=== PATIENT | female | born 1960 | race Two or more races ===

== ENCOUNTER 2017-12-05 01:56 | Emergency (ER) | payer MEDICAID ==
[~2017-12-05] VITALS: Ht 165.1 cm; Wt 81.6 kg
[~2017-12-05 01:56] MED LIST: ASPI-807 PO; CLOP75TA15 PO
--- NOTE | 2017-12-05 01:56 | NUR ---
BLOOD IN URINE SINCE SUNDAY WITH RT FLANK PAIN; WENT TO [facility] SUNDAY. HAS BEEN TAKING PCN FOR UTI BUT NEW ONSET PAIN STARTING TODAY. VSS NAD A/OX4 ABLE TO MAKE NEEDS KNOWN. WILL CONTINUE TO MONITOR FOR THE REMAINDER OF THE SHIFT.
--- NOTE | 2017-12-05 01:58 | NUR ---
URINE SAMPLE COLLECTED
--- NOTE | 2017-12-05 02:27 | NUR ---
ER MD LAI AT BEDSIDE
[2017-12-05] MEDS ORDERED: IBUPROFEN 400 MG TABLET PO ONE (02:30)
[2017-12-05] MEDS ORDERED: IBUPROFEN 400 MG TABLET ONE (02:32)
[2017-12-05 02:58] LABS: APPEARANCE,URINE CLOUDY (CLEAR); BILIRUBIN,URINE NEGATIVE (NEGATIVE); BLOOD, URINE 3+ Ery/uL (NEGATIVE); COLOR,URINE DARK YELLOW (YELLOW); KETONES,URINE NEGATIVE (NEGATIVE); LEUKOCYTE ESTERASE ,URINE TRACE (NEGATIVE); NITRITE, URINE NEGATIVE (NEGATIVE); PH,URINE 5.5 (5.0-8.0); PROTEIN,URINE TRACE mg/dl (NEGATIVE); UGLUCOSE NEGATIVE (NEGATIVE); UROBILINOGEN,URINE 0.2 EU/dL (0.2)
[2017-12-05 03:00] LABS: BACTERIA,URINE Moderate /HPF (None Seen); RBC,URINE TOO NUMEROUS TO COUN /HPF (0-2); SQUAMOUS EPITHELIAL CELL,UR Few /HPF (None Seen)
[2017-12-05] MEDS ORDERED: TAMSULOSIN 0.4 MG CAP.SR.24H ONE (03:23)
[2017-12-05] MEDS ORDERED: TAMSULOSIN 0.4 MG CAP.SR.24H PO ONE (03:30)
[2017-12-05 03:58] VITALS: BP 148/79
== END 2017-12-05 03:59 | disposition home or self-care (01) ==
LOC: ER 01:57
DX: N23 Unspecified renal colic (principal); I10 Essential (primary) hypertension; Z95.5 Presence of coronary angioplasty implant and graft; Z88.1 Allergy status to other antibiotic agents; Z79.82 Long term (current) use of aspirin
CPT/HCPCS: 81000-TC; 87086-TC; A4606; Z7610

== ENCOUNTER 2019-07-03 09:50 | Emergency (ER) | payer MEDICAID ==
[~2019-07-03] VITALS: Ht 167.6 cm; Wt 79.4 kg
[2019-07-03 10:02] VITALS: BP 134/97
[2019-07-03] MEDS ORDERED: DOCUSATE SODIUM LIQ 100 MG/10 ML UDC ONE (11:25)
[2019-07-03] MEDS ORDERED: DOCUSATE SODIUM LIQ 100 MG/10 ML UDC XX ONE (11:30)
== END 2019-07-03 12:18 | disposition home or self-care (01) ==
LOC: ER 09:53
DX: H61.22 Impacted cerumen, left ear (principal); I10 Essential (primary) hypertension; Z88.1 Allergy status to other antibiotic agents; Z95.818 Presence of other cardiac implants and grafts; Z79.82 Long term (current) use of aspirin; Z79.899 Other long term (current) drug therapy

== ENCOUNTER 2019-08-13 05:00 | Emergency (ER) | payer MEDICAID ==
[~2019-08-13] VITALS: Ht 167.6 cm; Wt 79.4 kg
[2019-08-13 05:12] VITALS: BP 141/77
--- NOTE | 2019-08-13 05:30 | NUR ---
PT CAME TO THE ER BED 10 C/O L EYE PAIN. PT STATES THAT SINCE SUNDAY EVENING, SHE HAD NOTICED FLOATERS AND FLASHES COMING FROM HER LEFT EYE. NO DEFICITS IN VISUAL ACUITY. AAOX4. NO SOB. BREATHING EVENLY AND UNLABORED. AWAITING MD MCWILLIAMS.
--- NOTE | 2019-08-13 06:33 | NUR ---
radiology called for Ultrasound
[2019-08-13] MEDS ORDERED: IBUPROFEN 600 MG TABLET PO ONE (07:00)
--- NOTE | 2019-08-13 07:03 | NUR ---
PATIENT ATTEMPTED TO LEAVE DUE TO READING INVASIVE PROCEDURES ON THE INTERNET ON HER PHONE. PATIENT REASSURED. PATIENT IS STAYING. MD NOTIFIED. MD SPOKE WITH PATIENTS.
--- NOTE | 2019-08-13 07:38 | NUR ---
US AT BEDSIDE
--- NOTE | 2019-08-13 07:49 | NUR ---
REPORT GIVEN TO CRISTINA FOR CHIN.
== END 2019-08-13 08:03 | disposition home or self-care (01) ==
LOC: ER 05:00
DX: H53.8 Other visual disturbances (principal); I10 Essential (primary) hypertension; Z95.5 Presence of coronary angioplasty implant and graft; Z88.1 Allergy status to other antibiotic agents; Z79.82 Long term (current) use of aspirin; Z79.899 Other long term (current) drug therapy

== ENCOUNTER 2019-12-17 10:21 | Emergency (ER) | payer MEDICAID ==
[~2019-12-17] VITALS: Ht 167.6 cm; Wt 81.6 kg
--- NOTE | 2019-12-17 10:29 | NUR ---
pt ambulatory to er bed 11 c/o r sided flank pain that started this morning at 0400. pt states was seen at urgent care last sunday and is taking macrobid for urinary tract infection. pt is afebrile, vss. awaiting md soares.
--- NOTE | 2019-12-17 10:50 | NUR ---
dr love at bedside for eval.
[2019-12-17] MEDS ORDERED: KETOROLAC TROMETHAMINE 15 MG/ML VIAL ONE (10:53)
--- NOTE | 2019-12-17 10:55 | NUR ---
iv line started blood drawn and sent to lab.
[2019-12-17] MEDS ORDERED: KETOROLAC TROMETHAMINE INJ 30 MG/ML VIAL IV ONE (11:00)
[2019-12-17 11:01] LABS: APPEARANCE,URINE Clear (CLEAR); BILIRUBIN,URINE Negative (NEGATIVE); BLOOD, URINE Small Ery/uL (NEGATIVE); COLOR,URINE Yellow (YELLOW); KETONES,URINE Negative (NEGATIVE); LEUKOCYTE ESTERASE ,URINE Negative (NEGATIVE); NITRITE, URINE Negative (NEGATIVE); PROTEIN,URINE Negative (NEGATIVE); UGLUCOSE Negative (NEGATIVE)
[2019-12-17 11:08] LABS: BACTERIA,URINE None seen /HPF (None Seen); SQUAMOUS EPITHELIAL CELL,UR Few /HPF (None Seen); WBC,URINE 0-1 /HPF (0-3)
[2019-12-17 11:09] LABS: BASOPHILS # (AUTO) 0.1 /CMM (0.0-0.2); BASOPHILS % (AUTO) 0.5 % (0.0-2.0); EOSINOPHILS % (AUTO) 1.4 % (0.0-6.0); HEMATOCRIT 40 % (33-45); HEMOGLOBIN 13.2 g/dL (11.5-14.8); LYMPHOCYTES # (AUTO) 2.6 /CMM (0.8-4.8); LYMPHOCYTES % (AUTO) 24.7 % (20.0-44.0); MEAN CORPUSCULAR HGB CONC 33 g/dl (31.0-36.0); MEAN CORPUSCULAR VOLUME 93 fL (82-100); MONOCYTES # (AUTO) 0.8 /CMM (0.1-1.30); NEUTROPHILS # (AUTO) 6.8 /CMM (1.8-8.9); NEUTROPHILS % (AUTO) 65.4 % (43.0-81.0); PLATELET COUNT (AUTO) 297 /CMM (150-450); RED BLOOD CELL COUNT(AUTO) 4.29 MIL/uL (4.0-5.2); WHITE BLOOD COUNT (AUTO) 10.4 K/uL (4.3-11.0)
[2019-12-17 11:16] LABS: CALCIUM, SERUM 8.8 mg/dL (8.5-10.1); CREATININE 0.9 mg/dL (0.6-1.3); POTASSIUM 3.8 mmol/L (3.5-5.1)
[2019-12-17 11:22] LABS: ALBUMIN 3.9 g/dL (3.4-5.0); BILIRUBIN,DIRECT 0.2 mg/dL (0.0-0.2); BILIRUBIN,TOTAL 0.7 mg/dL (0.2-1.0); TOTAL PROTEIN, SERUM 7.9 g/dL (6.4-8.2)
[2019-12-17] MEDS ORDERED: IV NS 0.9% 1,000 ML IV ONE (11:30)
--- NOTE | 2019-12-17 11:50 | NUR ---
1L NS given bolus per ermd order. end time 1250
--- NOTE | 2019-12-17 12:54 | NUR ---
Patient discharged to home in stable condition. Written and verbal after care instructions given. Patient verbalizes understanding of instruction.IV removed. Catheter intact and site benign. Pressure and 4x4 applied to site. No bleeding noted. Pt ambulatory with a steady gait
[2019-12-17 12:55] VITALS: BP 138/81
== END 2019-12-17 12:55 | disposition home or self-care (01) ==
LOC: ER 10:21
DX: N20.0 Calculus of kidney (principal); I10 Essential (primary) hypertension; Z95.5 Presence of coronary angioplasty implant and graft; Z88.1 Allergy status to other antibiotic agents; Z79.82 Long term (current) use of aspirin; Z79.899 Other long term (current) drug therapy
CPT/HCPCS: 36415; 74176; 80048; 80076; 81001; 83690; 85025; 87086; 96374; 99284; J1885; J7030; 81000-TC